=== PATIENT | female | born 2000 | race Hispanic/Latino ===

== ENCOUNTER 2022-01-29 11:29 | Emergency (ER) | payer OTHER ==
[2022-01-29] VITALS (11 sets, daily range): BP systolic 87–125; BP diastolic 51–78
[~2022-01-29] VITALS: Ht 149.9 cm; Wt 50.0 kg
[2022-01-29 11:47] LABS: URINE BILIRUBIN - DIPSTICK NEGATIVE (NEGATIVE); URINE BLOOD DIPSTICK NEGATIVE (NEGATIVE); URINE COLOR YELLOW; URINE GLUCOSE - DIPSTICK NEGATIVE (NEGATIVE); URINE KETONE NEGATIVE (NEGATIVE); URINE LEUK ESTERASE TRACE (NEGATIVE); URINE PH 7.5 (4.5-8.0); URINE PROTEIN - DIPSTICK NEGATIVE (NEG-TRACE); URINE UROBILINOGEN - DIPSTICK 0.2 E.U./dL (0.2)
[2022-01-29 11:51] LABS: URINE NITRITE - DIPSTICK NEGATIVE (Negative)
[2022-01-29 12:10] LABS: HEMATOCRIT 40.7 % (37.0-47.0); HEMOGLOBIN 13.8 g/dl (12.0-16.0); IMMATURE GRANULOCYTES 0.3 % (0.0-5.0); MEAN CELL VOLUME 86.4 fL CALC (80.0-100.0); MEAN CORPUSCULAR HGB 29.3 pG CALC (26.0-32.0); MEAN CORPUSCULAR HGB CONC 33.9 g/dL CAL (32.0-36.0); NEUT# 4.84 thou/uL (2.00-7.15); RED BLOOD COUNT 4.71 mill/uL (4.20-5.60); RED CELL DISTRI WIDTH 14.3 % (11.5-15.5)
[2022-01-29 12:32] LABS: ALKALINE PHOSPHATASE 95 u/l (38-126); BILIRUBIN, TOTAL 0.6 mg/dL (0.0-1.4); BUN 8 mg/dL (7-17); BUN/CREATININE RATIO 15 (12-20 (CALC)); CARBON DIOXIDE 22 mmol/l (22-30); CREATININE 0.6 mg/dL (0.5-1.0); GFR FOR AFR.AMER. > 60 ML/MIN (>=60 (CALC)); GFR OTHER RACES > 60 ML/MIN (>=60 (CALC)); SGOT/AST 27 u/l (14-36)
[2022-01-29 12:39] LABS: ALBUMIN 4.8 g/dL (3.2-5.0); ANION GAP 17 (6-22 (CALC)); CHLORIDE 104 mmol/l (95-108); LIPASE 62 u/l (23-300); POTASSIUM 3.7 mmol/l (3.5-5.1); SODIUM 139 mmol/l (137-146); TOTAL PROTEIN 8.2 g/dL (6.3-8.2)
== END 2022-01-29 14:41 | disposition home or self-care (01) ==
LOC: ED 11:29
PROVIDERS: Family Medicine
DX: R10.32 Left lower quadrant pain (principal); R10.11 Right upper quadrant pain; Z32.01 Encounter for pregnancy test, result positive

== ENCOUNTER 2022-02-08 10:05 | Emergency (ER) | payer OTHER ==
[~2022-02-08] VITALS: Ht 149.9 cm; Wt 50.0 kg
[2022-02-08 10:11] VITALS: BP 114/76
[2022-02-08 10:35] VITALS: BP 106/61
[2022-02-08 10:41] LABS: HEMATOCRIT 42.5 % (37.0-47.0); HEMOGLOBIN 13.9 g/dl (12.0-16.0); IMMATURE GRANULOCYTES 0.2 % (0.0-5.0); MEAN CELL VOLUME 88.9 fL CALC (80.0-100.0); MEAN CORPUSCULAR HGB 29.1 pG CALC (26.0-32.0); MEAN CORPUSCULAR HGB CONC 32.7 g/dL CAL (32.0-36.0); NEUT# 7.61 thou/uL (2.00-7.15); RED BLOOD COUNT 4.78 mill/uL (4.20-5.60); RED CELL DISTRI WIDTH 14.1 % (11.5-15.5)
[2022-02-08 10:55] LABS: ALKALINE PHOSPHATASE 84 u/l (38-126); ANION GAP 15 (6-22 (CALC)); BILIRUBIN, TOTAL 0.5 mg/dL (0.0-1.4); BUN 6 mg/dL (7-17); BUN/CREATININE RATIO 11 (12-20 (CALC)); CARBON DIOXIDE 24 mmol/l (22-30); CHLORIDE 103 mmol/l (95-108); CREATININE 0.6 mg/dL (0.5-1.0); GFR FOR AFR.AMER. > 60 ML/MIN (>=60 (CALC)); GFR OTHER RACES > 60 ML/MIN (>=60 (CALC)); SGOT/AST 32 u/l (14-36); SODIUM 138 mmol/l (137-146); TOTAL PROTEIN 8.3 g/dL (6.3-8.2)
[2022-02-08 11:00] VITALS: BP 124/82
[2022-02-08 11:13] LABS: BETA-HCG, QUANT(RESULT NUMBER) 606 mIU/mL
[2022-02-08 11:30] VITALS: BP 106/57
[2022-02-08 12:00] VITALS: BP 106/57
== END 2022-02-08 12:10 | disposition home or self-care (01) ==
LOC: ED 10:05
PROVIDERS: Family Medicine
DX: O46.90 Antepartum hemorrhage, unspecified, unspecified trimester (principal); Z3A.00 Weeks of gestation of pregnancy not specified; Z67.90 Unspecified blood type, Rh positive

== ENCOUNTER 2023-06-13 18:42 | Emergency (ER) | payer SELFPAY ==
[2023-06-13] VITALS (20 sets, daily range): BP systolic 76–116; BP diastolic 49–78
[~2023-06-13] VITALS: Ht 149.9 cm; Wt 44.9 kg
[~2023-06-13 18:42] MED LIST: MOTRIN800 MG PO
[2023-06-13 19:41] LABS: BASO% 0.2 % (0-3); EOS% 0.6 % (0-8); HEMATOCRIT 39.2 % (37.0-47.0); HEMOGLOBIN 13.4 g/dl (12.0-16.0); IMMATURE GRANULOCYTES 0.1 % (0.0-5.0); LYMPH% 15.6 % (15-41); MEAN CELL VOLUME 86.5 fL CALC (80.0-100.0); MEAN CORPUSCULAR HGB 29.6 pG CALC (26.0-32.0); MEAN CORPUSCULAR HGB CONC 34.2 g/dL CAL (32.0-36.0); MONO% 7.3 % (2-13); NEUT# 6.11 thou/uL (2.00-7.15); NEUT% 76.2 % (42-76); RED BLOOD COUNT 4.53 mill/uL (4.20-5.60); RED CELL DISTRI WIDTH 13.2 % (11.5-15.5)
[2023-06-13 19:43] LABS: URINE BLOOD DIPSTICK Trace-intact (NEGATIVE); URINE GLUCOSE - DIPSTICK Negative (NEGATIVE); URINE KETONE 40 mg/dL (NEGATIVE); URINE LEUK ESTERASE Negative (NEGATIVE); URINE NITRITE - DIPSTICK Negative (Negative); URINE PH 5.5 (4.5-8.0); URINE PROTEIN - DIPSTICK 30 mg/dL (NEG-TRACE); URINE SPECIFIC GRAVITY >=1.030
[2023-06-13 19:49] LABS: URINE COLOR Amber
[2023-06-13 19:50] LABS: URINE AMORPH SEDIMENT FEW hpf (NONE-FEW); URINE RBC 0-2 RBC/hpf (0-5); URINE SQUAMOUS EPITHELIAL CELL FEW EPI/hpf (0-FEW); URINE WBC 0-2 WBC/hpf (0-5)
[2023-06-13 20:01] LABS: ALBUMIN 4.4 g/dL (3.2-5.0); ALKALINE PHOSPHATASE 113 u/l (38-126); BUN 7 mg/dL (7-17); BUN/CREATININE RATIO 13 (12-20 (CALC)); CARBON DIOXIDE 24 mmol/l (22-30); CHLORIDE 101 mmol/l (95-108); CREATININE 0.6 mg/dL (0.5-1.0); GFR FOR AFR.AMER. > 60 ML/MIN (>=60 (CALC)); GFR OTHER RACES > 60 ML/MIN (>=60 (CALC)); LIPASE 135 u/l (23-300); SGOT/AST 39 u/l (14-36); SODIUM 136 mmol/l (137-146); TOTAL PROTEIN 7.7 g/dL (6.3-8.2)
[2023-06-13 20:07] LABS: ANION GAP 14 (6-22 (CALC)); BILIRUBIN, TOTAL 1.1 mg/dL (0.02-1.3); POTASSIUM 3.3 mmol/l (3.5-5.1)
[2023-06-13 20:53] LABS: BETA-HCG, QUANT(RESULT NUMBER) 176100 mIU/mL
[2023-06-13] MEDS ORDERED: DOXYLAMINE SUCC PO (23:30)
== END 2023-06-13 23:50 | disposition home or self-care (01) | DRG 833 ==
LOC: ED 18:42
PROVIDERS: Family Medicine
DX: O21.1 Hyperemesis gravidarum with metabolic disturbance (principal); Z3A.15 15 weeks gestation of pregnancy; Z20.822 Contact with and (suspected) exposure to COVID-19